=== PATIENT | female | born 1970 | race Caucasian/White ===

== ENCOUNTER 2016-05-27 | Outpatient (CLI) | payer OTHER | END 2016-05-27 11:19 | disposition critical access hospital (66) | CPT/HCPCS: A0425; A0429 ==

== ENCOUNTER 2016-05-27 11:35 | Emergency (ER) | payer OTHER ==
[2016-05-27] MEDS ORDERED: ACETAMINOPHEN 325 MG TABLET PO STA (11:43)
[2016-05-27] MEDS ORDERED: LORazepam 0.5 MG TABLET PO STA (11:43)
[2016-05-27] MEDS ORDERED: LORazepam 0.5 MG TABLET ONE (12:06)
[2016-05-27] MEDS ORDERED: ACETAMINOPHEN 325 MG TABLET PO ONE (12:06)
== END 2016-05-27 12:35 | disposition home or self-care (01) ==
DX: S20.219A Contusion of unspecified front wall of thorax, initial encounter (principal); V43.52XA Car driver injured in collision with other type car in traffic accident, initial encounter; Y92.488 Other paved roadways as the place of occurrence of the external cause
CPT/HCPCS: 71020; 99283; A9270

== ENCOUNTER 2016-07-20 08:30 | Outpatient (CLI) | payer OTHER | END 2016-07-20 08:31 | disposition home or self-care (01) | DX: R07.9 Chest pain, unspecified (principal); R55 Syncope and collapse; I10 Essential (primary) hypertension ==

== ENCOUNTER 2016-07-23 07:12 | Outpatient (CLI) | payer OTHER | END 2016-07-23 07:13 | disposition home or self-care (01) | DX: R07.9 Chest pain, unspecified (principal); R00.2 Palpitations; R55 Syncope and collapse ==

== ENCOUNTER 2016-08-24 10:53 | Outpatient (CLI) | payer OTHER | END 2016-08-24 10:54 | disposition home or self-care (01) | LOC: DI 10:53 | PROVIDERS: ATTEND Nurse Practitioner Primary Care | DX: R07.9 Chest pain, unspecified (principal); I10 Essential (primary) hypertension; R55 Syncope and collapse; I51.7 Cardiomegaly | CPT/HCPCS: 93306 ==